=== PATIENT | male | born 1965 | race Caucasian/White ===

== ENCOUNTER → 2017-04-17 | Outpatient (CLI) | payer OTHER ==
[~2017-04-17] VITALS: Ht 177.8 cm; Wt 102.1 kg
[~2017-04-17] MED LIST: CYANOCOBALAM1000 MCG PO; MEN'S ONE DAIL1 EACH PO; VITAMIN B-12 51 EACH SL
== END | disposition home or self-care (01) ==
LOC: AMB 04-16 10:30
DX: Z12.11 Encounter for screening for malignant neoplasm of colon (principal); K63.5 Polyp of colon; K64.8 Other hemorrhoids; K21.0 Gastro-esophageal reflux disease with esophagitis; L85.9 Epidermal thickening, unspecified; K44.9 Diaphragmatic hernia without obstruction or gangrene
CPT/HCPCS: 88305; J2250; J2405; J3010

== ENCOUNTER 2018-01-03 20:41 | Emergency (ER) | payer OTHER ==
[~2018-01-03] VITALS: Ht 175.3 cm; Wt 109.1 kg
[2018-01-03 23:58] VITALS: BP 118/96
== END 2018-01-03 23:59 | disposition home or self-care (01) ==
LOC: EME 20:41
DX: M79.89 Other specified soft tissue disorders (principal); I25.10 Atherosclerotic heart disease of native coronary artery without angina pectoris; Z95.9 Presence of cardiac and vascular implant and graft, unspecified
CPT/HCPCS: 93971